=== PATIENT | male | born 1995 | race Caucasian/White ===

== ENCOUNTER 2022-06-29 22:31 | Emergency (ER) | payer MEDICAID, OTHER ==
[~2022-06-29] VITALS: Ht 172.7 cm; Wt 94.0 kg
[2022-06-29] MEDS ORDERED: ONDANSETRON HCL 4MG/2ML INJ IV STA (22:54)
[2022-06-29] MEDS ORDERED: DEXT 5%/0.45% NACL 1000ML 1,000 ML IV ONE (23:00)
[2022-06-29 23:11] LABS: BASOPHILS % 0.5 % (0.0-2.0); EOSINOPHILS % 2.6 % (0.0-5.0); HEMATOCRIT. 44.1 % (42.0-52.0); HEMOGLOBIN. 15.2 g/dL (14.0-18.0); LYMPHOCYTES % 19.9 % (20.0-50.0); MEAN CORPUSCULAR HEMOGLOBIN 30.1 pg (28.0-32.0); MEAN CORPUSCULAR VOLUME 87.5 fL (80.0-94.0); MEAN PLATELET VOLUME 8.4 fl (7.4-10.4); PLATELET 209 x1000/uL (130-400); RED BLOOD CELL COUNT 5.05 mill/uL (4.7-6.1); RED CELL DISTRIBUTION WIDTH 14.1 % (11.6-14.6)
[2022-06-29 23:21] LABS: CHLORIDE 112 mEq/L (98-107)
[2022-06-29 23:27] LABS: ETHANOL BLOOD 256 mg/dL
[2022-06-30 03:00] VITALS: BP 102/39
== END 2022-06-30 05:03 | disposition home or self-care (01) ==
LOC: ER 22:31
DX: T51.0X1A Toxic effect of ethanol, accidental (unintentional), initial encounter (principal); Y92.9 Unspecified place or not applicable
CPT/HCPCS: 36415; 80053; 80320; 82962; 85025; 96360; 99284; G0480

== ENCOUNTER 2024-05-09 10:21 | Emergency (ER) | payer MEDICAID ==
[~2024-05-09] VITALS: Ht 170.2 cm; Wt 82.0 kg
[2024-05-09 10:24] VITALS: O2SAT 98
[2024-05-09 10:27] VITALS: BP 118/69; PULSE 90; RESP 16; TEMP 98.4; O2SAT 97
[2024-05-09] MEDS ORDERED: IBUPROFEN 400MG TABLET PO ONE (11:15)
[2024-05-09] MEDS ORDERED: ACETAMINOPHEN 325MG TABLET PO ONE (11:15)
== END 2024-05-09 15:05 | disposition home or self-care (01) ==
LOC: ER 10:21
DX: J02.9 Acute pharyngitis, unspecified (principal); Z53.21 Procedure and treatment not carried out due to patient leaving prior to being seen by health care provider
CPT/HCPCS: 99283